=== PATIENT | female | born 1995 | race Two or more races ===

== ENCOUNTER 2022-05-20 08:58 | Emergency (ER) | payer OTHER ==
[~2022-05-20] VITALS: Ht 170.2 cm; Wt 74.4 kg
[2022-05-20 09:46] LABS: BILIRUBIN,URINE NEGATIVE (NEGATIVE); COLOR,URINE YELLOW (YELLOW); LEUKOCYTE ESTERASE ,URINE NEGATIVE (NEGATIVE); NITRITE, URINE NEGATIVE (NEGATIVE); PROTEIN,URINE 30 mg/dl (NEGATIVE); UGLUCOSE NEGATIVE (NEGATIVE)
[2022-05-20 10:06] LABS: BASOPHILS % (AUTO) 0.2 % (0.0-2.0); EOSINOPHILS % (AUTO) 0.7 % (0.0-6.0); HEMATOCRIT 32 % (33-45); HEMOGLOBIN 10.6 g/dL (11.5-14.8); LYMPHOCYTES # (AUTO) 2.1 K/uL (0.8-4.8); MEAN CORPUSCULAR HGB CONC 34 g/dl (31.0-36.0); MEAN CORPUSCULAR VOLUME 81 fL (82-100); MONOCYTES # (AUTO) 0.6 K/uL (0.1-1.30); MONOCYTES % (AUTO) 6.7 % (2.0-12.0); NEUTROPHILS # (AUTO) 6.3 K/uL (1.8-8.9); NEUTROPHILS % (AUTO) 69.4 % (43.0-81.0); PLATELET COUNT (AUTO) 271 K/uL (150-450); RED BLOOD CELL COUNT(AUTO) 3.86 MIL/uL (4.0-5.2); WHITE BLOOD COUNT (AUTO) 9.1 K/uL (4.3-11.0)
[2022-05-20 10:12] LABS: CALCIUM, SERUM 8.3 mg/dL (8.5-10.1); CREATININE 0.6 mg/dL (0.6-1.3); POTASSIUM 3.8 mmol/L (3.5-5.1)
[2022-05-20 10:22] LABS: BACTERIA,URINE Few /HPF (None Seen); RBC,URINE 0-2 /HPF (0-2); SQUAMOUS EPITHELIAL CELL,UR Many /HPF (None Seen)
[2022-05-20 10:41] LABS: ALBUMIN 2.8 g/dL (3.4-5.0); BILIRUBIN,DIRECT 0.2 mg/dL (0.0-0.2); BILIRUBIN,TOTAL 0.9 mg/dL (0.2-1.0); TOTAL PROTEIN, SERUM 6.1 g/dL (6.4-8.2)
--- NOTE | 2022-05-20 10:56 | NUR ---
Norma olguin in [facility] - 05/20/22 at 1057 by ESTEBAN CALLED FOR UPDATE ON ULTRASOUND READ.
--- NOTE | 2022-05-20 12:14 | NUR ---
CALLED OFFICE OF Arnulfo Paiz MD, , LEFT VOICEMAIL TO PAGE FOR CONSULT
--- NOTE | 2022-05-20 12:43 | NUR ---
CALLED OFFICE OF DR ERICH BURGESS MD, LEFT VOICEMAIL FOR PAGE
--- NOTE | 2022-05-20 13:20 | NUR ---
PT UPDATED BY DR. RAMRIEZ. INFORMED PT OF DISCHARGE INSTRUCTIONS AND ADVISED TO GO TO [facility] ER IF CONTINUING TO EXPERIENCE SYMPTOMS.
[2022-05-20 13:27] VITALS: BP 104/80
--- NOTE | 2022-05-20 13:27 | NUR ---
Patient discharged to home in stable condition. Written and verbal after care instructions given. Patient verbalizes understanding of instruction.
== END 2022-05-20 13:33 | disposition home or self-care (01) ==
LOC: ER 09:05
DX: O20.0 Threatened abortion (principal); Z3A.17 17 weeks gestation of pregnancy
CPT/HCPCS: 99284; 76805; 85025; 80048; 80076; 81001; 36415; 85730; 86850; 84702; J7040